=== PATIENT | female | born 1960 | race Caucasian/White ===

== ENCOUNTER 2019-11-22 15:14 | Outpatient (CLI) | payer BC, SELFPAY ==
--- NOTE | 2019-11-22 15:18 | MM_ITS ---
WS: [id number] BILATERAL SCREENING DIGITAL MAMMOGRAM WITH CAD HISTORY: SCREENING COMPARISON: 10/20/2018, 10/08/2017 and 10/07/2016 Bilateral CC and MLO views submitted. Computer aided detection analyzed. Breast composition: There are scattered areas of fibroglandular density. No suspicious masses, microc alcifications or architectural distortion. Scattered lobulated nodules in each breast are stable. Pro bably representing small benign lymph nodes. MM/[id number] IMPRESSION: BI-RADS: 2-Benign FOLLOW UP: 1 Year Follow-up
== END 2019-11-22 15:15 | disposition home or self-care (01) ==
LOC: RADSHAW 15:14
PROVIDERS: Family Provider Family Medicine; PCP Nurse Practitioner Family; Visit Provider Obstetrics & Gynecology
DX: Z12.31 Encounter for screening mammogram for malignant neoplasm of breast (principal)
CPT/HCPCS: 77067

== ENCOUNTER → 2020-07-11 15:45 | Outpatient (BNVA) | payer BC, SELFPAY | PROVIDERS: Family Provider Family Medicine; PCP Nurse Practitioner Family; Visit Provider Nurse Practitioner Women's Health | DX: Z01.419 Encounter for gynecological examination (general) (routine) without abnormal findings (principal); N95.2 Postmenopausal atrophic vaginitis | CPT/HCPCS: 88175 ==

== ENCOUNTER 2021-01-04 13:15 | Outpatient (CLI) | payer BC, SELFPAY ==
--- NOTE | 2021-01-04 13:20 | MM_ITS ---
WS: [id number] BILATERAL SCREENING DIGITAL MAMMOGRAM WITH CAD HISTORY: SCREENING COMPARISON: 11/22/2019 and 10/20/2018 Bilateral CC and MLO views submitted. Computer aided detection analyzed. Breast composition: There are scattered areas of fibroglandular density. No suspicious masses, microc alcifications or architectural distortion. Bilateral intramammary lymph nodes. No interval change. MM/[id number] IMPRESSION: BI-RADS: 2-Benign FOLLOW UP: 1 Year Follow-up
== END 2021-01-04 13:16 | disposition home or self-care (01) ==
LOC: RADSHAW 13:17
PROVIDERS: PCP Nurse Practitioner Family; Visit Provider Nurse Practitioner Women's Health
DX: Z12.31 Encounter for screening mammogram for malignant neoplasm of breast (principal)
CPT/HCPCS: 77067

== ENCOUNTER → 2022-02-01 08:13 | Outpatient (BNVA) | payer OTHER, SELFPAY | PROVIDERS: PCP Nurse Practitioner Family; Visit Provider Nurse Practitioner Family | DX: Z00.00 Encounter for general adult medical examination without abnormal findings (principal); I10 Essential (primary) hypertension | CPT/HCPCS: 80048; 80061; 85025 ==

== ENCOUNTER → 2022-12-13 10:15 | Outpatient (BNVA) | payer OTHER, SELFPAY | PROVIDERS: PCP Clinical Nurse Specialist Adult Health; Visit Provider Clinical Nurse Specialist Adult Health | DX: E03.9 Hypothyroidism, unspecified (principal); I10 Essential (primary) hypertension | CPT/HCPCS: 80061; 84436; 84443; 84481 ==

== ENCOUNTER → 2023-07-22 15:20 | Outpatient (BNVA) | payer OTHER, SELFPAY | PROVIDERS: PCP Clinical Nurse Specialist Adult Health; Visit Provider Nurse Practitioner Women's Health | DX: R87.610 Atypical squamous cells of undetermined significance on cytologic smear of cervix (ASC-US) (principal) | CPT/HCPCS: 87624 ==

== ENCOUNTER 2023-09-17 14:29 | Outpatient (CLI) | payer OTHER, SELFPAY ==
--- NOTE | 2023-09-17 14:33 | XR_ITS ---
WS: [id number] SCREENING DEXA SCAN [employer] CLINICAL INFORMATION: Z78.0 - Asymptomatic menopausal state COMPARISON: None. FINDINGS: The L1-L4 bone mineral density measures 1.381 g/cm2. This corresponds to a T score score of 1.7 and Z score of 2.2. Left femoral neck bone mineral density measures 0.917 g/cm2. This corresponds to a T score of -0.7 an d Z score of -0.3. Right femoral neck bone mineral density measures 0.869 g/cm2. This corresponds to a T score -1.1of an d Z score of -0.7. Mean femoral neck bone mineral density measures 0.893 g/cm2. This corresponds to a T score of -0.9 an d Z score of -0.5. IMPRESSION: Normal bone mineralization lumbar spine. Normal bone mineralization femoral necks approaching osteope viola. Patient's FRAX calculated 10 year probability for major osteoporotic fracture is 9.4% and osteoporoti c hip fracture is 1.2%.
== END 2023-09-17 14:30 | disposition home or self-care (01) ==
LOC: RAD 14:29
PROVIDERS: PCP Clinical Nurse Specialist Adult Health; Visit Provider Nurse Practitioner Women's Health
DX: Z13.820 Encounter for screening for osteoporosis (principal); Z78.0 Asymptomatic menopausal state
CPT/HCPCS: 77080

== ENCOUNTER → 2024-02-04 15:02 | Outpatient (BNVA) | payer OTHER, SELFPAY | PROVIDERS: PCP Clinical Nurse Specialist Adult Health; Visit Provider Clinical Nurse Specialist Adult Health | DX: I10 Essential (primary) hypertension (principal) | CPT/HCPCS: 80053; 80061; 82306; 85025 ==

== ENCOUNTER → 2025-05-03 09:30 | Outpatient (BNVA) | payer OTHER, SELFPAY | PROVIDERS: PCP Clinical Nurse Specialist Adult Health; Visit Provider Clinical Nurse Specialist Adult Health | DX: I10 Essential (primary) hypertension (principal); E55.9 Vitamin D deficiency, unspecified | CPT/HCPCS: 80053; 80061; 82306; 85025 ==